=== PATIENT | male | born 1990 | race African-American/Black ===

== ENCOUNTER 2017-09-11 15:58 | Emergency (ER) | payer MEDICAID, OTHER ==
[2017-09-17 00:08] LABS: HSV TYPE I IgM AB <1:10 titer (<1:10); HSV TYPE II IgG SPECIFIC <0.91 index (0.00-0.90); HSV TYPE II IgM ABY <1:10 titer (<1:10)
== END 2017-09-11 17:34 | disposition home or self-care (01) ==
LOC: M ED 15:58
DX: Z20.2 Contact with and (suspected) exposure to infections with a predominantly sexual mode of transmission (principal); Z88.0 Allergy status to penicillin; Z91.030 Bee allergy status
CPT/HCPCS: 86695

== ENCOUNTER 2017-09-17 12:34 | Emergency (ER) | payer MEDICAID, SELFPAY, OTHER | END 2017-09-17 14:51 | disposition left against medical advice (07) | LOC: M ED 12:34 | DX: Z53.21 Procedure and treatment not carried out due to patient leaving prior to being seen by health care provider (principal) ==

== ENCOUNTER 2017-09-17 18:00 | Emergency (ER) | payer MEDICAID | END 2017-09-17 21:00 | disposition left against medical advice (07) | LOC: M ED 18:00 | DX: Z53.21 Procedure and treatment not carried out due to patient leaving prior to being seen by health care provider (principal) ==

== ENCOUNTER 2018-02-24 15:20 | Emergency (ER) | payer OTHER, MEDICAID ==
[2018-02-24 16:26] LABS: INFLUENZA A AMPLIFICATION NEGATIVE (NEGATIVE); INFLUENZA B AMPLIFICATION NEGATIVE (NEGATIVE)
[2018-02-24] MEDS: IBUPROFEN 600 MG TAB PO (17:41)
== END 2018-02-24 17:45 | disposition home or self-care (01) ==
LOC: M ED 15:20
DX: J06.9 Acute upper respiratory infection, unspecified (principal); R11.2 Nausea with vomiting, unspecified; R19.7 Diarrhea, unspecified; Z72.0 Tobacco use; Z88.0 Allergy status to penicillin; Z91.030 Bee allergy status
CPT/HCPCS: 87502

== ENCOUNTER 2018-03-17 15:55 | Inpatient (IN) | payer OTHER ==
[2018-03-17] MEDS: NS 1,000 ML IV ×3 (16:55→20:31)
[2018-03-17 17:09] LABS: ALBUMIN 4.5 GM/DL (3.2-5.2); ALBUMIN/GLOBULIN RATIO 1.13 (1.00-1.93); ALKALINE PHOSPHATASE 63 U/L (45-117); ALT/SGPT 86 U/L (12-78); ANION GAP 14 MEQ/L (8-16); AST/SGOT 78 U/L (7-37); BILIRUBIN,DIRECT 0.2 MG/DL (0.0-0.2); BILIRUBIN,TOTAL 0.5 MG/DL (0.2-1.0); BLOOD UREA NITROGEN 21 MG/DL (7-18); CALCIUM LEVEL 9.3 MG/DL (8.5-10.1); CARBON DIOXIDE LEVEL 23 MEQ/L (21-32); CHLORIDE LEVEL 95 MEQ/L (98-107); CREATININE FOR GFR 1.21 MG/DL (0.70-1.30); GLOMERULAR FILTRATION RATE > 60.0 (>60); GLUCOSE, FASTING 101 MG/DL (70-100); KETONE, URINE AUTO RFX TRACE mg/dL (NEGATIVE); NITRITE, URINE AUTO RFX NEGATIVE (NEGATIVE); POTASSIUM SERUM 3.4 MEQ/L (3.5-5.1); RBC, URINE AUTO RFX 0 /HPF (0-3); SODIUM LEVEL 132 MEQ/L (136-145); SPECIFIC GRAVITY UR AUTO RFX 1.005 (1.002-1.035); SQUAM EPITHELIAL CELL UR AURFX 0 /HPF (0-6); TOTAL PROTEIN 8.5 GM/DL (6.4-8.2); WBC, URINE AUTO RFX 4 /HPF (0-3)
[2018-03-17 17:16] LABS: BASO % 0.3 % (0.0-1.0); EOS # 0.1 10^3/uL (0.0-0.50); EOS % 0.5 % (0.0-3.0); HEMOGLOBIN 13.2 g/dl (13.5-17.5); IMMATURE GRANULOCYTE % 0.5 % (0-3.0); LYMPH # 3.6 10^3/uL (1.5-6.5); LYMPH % 34.5 % (24.0-44.0); MEAN CORPUSCULAR HEMOGLOBIN 22.2 pg (27.0-33.0); MEAN CORPUSCULAR VOLUME 67.3 fl (80.0-96.0); MONO # 0.7 10^3/uL (0.0-0.8); MONO % 6.3 % (0.0-5.0); NEUTROPHILS % 57.9 % (36.0-66.0); RED BLOOD COUNT 5.94 10^6/uL (4.30-6.10); RED CELL DISTRIBUTION WIDTH 17.1 % (11.5-14.5); WHITE BLOOD COUNT 10.4 10^3/uL (4.0-10.0)
[2018-03-17 17:17] LABS: INR 1.01; PARTIAL THROMBOPLASTIN TIME 30.7 SECONDS (25.4-37.6); PROTHROMBIN TIME 13.5 SECONDS (12.1-14.4)
[2018-03-17 17:21] LABS: AMPHETAMINES LEVEL URINE NEGATIVE (NEGATIVE); BARBITURATES URINE NEGATIVE (NEGATIVE); BENZODIAZEPINES URINE NEGATIVE (NEGATIVE); CANNABINOIDS URINE POSITIVE (NEGATIVE); COCAINE METABOLITE URINE NEGATIVE (NEGATIVE); METHADONE URINE NEGATIVE (NEGATIVE); OPIATES URINE NEGATIVE (NEGATIVE); PHENCYCLIDINE URINE NEGATIVE (NEGATIVE)
[2018-03-17 17:22] LABS: C REACTIVE PROTEIN QUANTITATIV < 0.30 MG/DL (0.00-0.30); CPK CREATINE PHOSPHOKINASE 1294 U/L (39-308); FREE T4 1.64 NG/DL (0.76-1.46); LIPASE 54 U/L (73-393); MB/CK RELATIVE INDEX 0.77 (< OR =4); NT-PRO BNP 17 PG/ML (<125); THYROID STIMULATING HORMONE 0.534 uIU/ML (0.358-3.740); TROPONIN I < 0.02 NG/ML (< 0.10)
[2018-03-17 17:54] LABS: POSITIVE MORPH POS FLAG
[2018-03-17 18:22] LABS: ERYTHROCYTE SEDIMENTATION RATE 4 mm/hr (0-15)
[2018-03-17 19:12] LABS: LEUKOCYTE ESTERASE UR AUTO RFX TRACE (NEGATIVE)
[2018-03-17 19:30] LABS: D-DIMER QUANT < 270.0 ng/ml (<500)
[2018-03-17 19:55] LABS: MYOGLOBIN SCREEN, URINE NEGATIVE (NEGATIVE)
[2018-03-17 20:23] LABS: PLTBLUE- EDTA FREE CALC 250 K/mm3 (172-450)
[2018-03-17 20:24] LABS: PLTBLUE- EDTA FREE MACHINE 227 10^3/uL (172-450)
[2018-03-17] MEDS ORDERED: ONDANSETRON 4MG/2ML VIAL (J2405) IV (20:45)
[2018-03-17] MEDS ORDERED: ACETAMINOPHEN TAB 650MG DOSE (2X325MG) PO (20:45)
[2018-03-17] MEDS: POTASSIUM CHLORIDE 10 MEQ SR TABLET PO (21:04)
[2018-03-17 22:10] LABS: CPK CREATINE PHOSPHOKINASE 1163 U/L (39-308); MB/CK RELATIVE INDEX 0.76 (< OR =4); TROPONIN I < 0.02 NG/ML (< 0.10)
[2018-03-18] MEDS: NS 1,000 ML IV (03:42)
[2018-03-18 05:31] LABS: HEMATOCRIT 34.8 % (42.0-52.0); MEAN CORPUSCULAR HEMOGLOBIN 22.7 pg (27.0-33.0); MEAN CORPUSCULAR HGB CONC 32.2 g/dl (32.0-36.5); MEAN CORPUSCULAR VOLUME 70.6 fl (80.0-96.0); PLATELET COUNT, AUTOMATED 257 10^3/uL (150-450); RED BLOOD COUNT 4.93 10^6/uL (4.30-6.10); WHITE BLOOD COUNT 8.1 10^3/uL (4.0-10.0)
[2018-03-18 05:37] LABS: HEMOGLOBIN 11.2 g/dl (13.5-17.5)
[2018-03-18 05:51] LABS: MAGNESIUM LEVEL 1.9 MG/DL (1.8-2.4)
[2018-03-18 05:56] LABS: ANION GAP 4 MEQ/L (8-16); BLOOD UREA NITROGEN 12 MG/DL (7-18); CALCIUM LEVEL 7.9 MG/DL (8.5-10.1); CARBON DIOXIDE LEVEL 28 MEQ/L (21-32); CHLORIDE LEVEL 111 MEQ/L (98-107); GLOMERULAR FILTRATION RATE > 60.0 (>60); GLUCOSE, FASTING 100 MG/DL (70-100); SODIUM LEVEL 143 MEQ/L (136-145)
[2018-03-18 06:20] LABS: CPK CREATINE PHOSPHOKINASE 1050 U/L (39-308); MB/CK RELATIVE INDEX 0.67 (< OR =4); TROPONIN I < 0.02 NG/ML (< 0.10)
[2018-03-18] MEDS: NS 0.45% 1,000 ML IV ×2 (06:36→16:44)
[2018-03-18] MEDS: BACITRACIN OINT 30GM TOP (09:46)
[2018-03-18] MEDS ORDERED: NICOTINE 14 MG/24 HR TRANSDERMAL TD (12:00)
[2018-03-18 14:27] LABS: CK-MB VALUE MASS 7.7 NG/ML (<3.6); CPK CREATINE PHOSPHOKINASE 1276 U/L (39-308); TROPONIN I < 0.02 NG/ML (< 0.10)
[2018-03-19] MEDS: NS 0.45% 1,000 ML IV (02:45)
[2018-03-19] MEDS: BACITRACIN OINT 30GM TOP (09:00)
[2018-03-19 09:43] LABS: HEMATOCRIT 42.5 % (42.0-52.0); HEMOGLOBIN 13.4 g/dl (13.5-17.5); MEAN CORPUSCULAR HEMOGLOBIN 22.2 pg (27.0-33.0); MEAN CORPUSCULAR HGB CONC 31.5 g/dl (32.0-36.5); MEAN CORPUSCULAR VOLUME 70.4 fl (80.0-96.0); PLATELET COUNT, AUTOMATED 281 10^3/uL (150-450); RED BLOOD COUNT 6.04 10^6/uL (4.30-6.10); RED CELL DISTRIBUTION WIDTH 17.5 % (11.5-14.5); WHITE BLOOD COUNT 4.4 10^3/uL (4.0-10.0)
[2018-03-19 10:03] LABS: ANION GAP 3 MEQ/L (8-16); BLOOD UREA NITROGEN 6 MG/DL (7-18); CARBON DIOXIDE LEVEL 32 MEQ/L (21-32); CHLORIDE LEVEL 104 MEQ/L (98-107); CPK CREATINE PHOSPHOKINASE 896 U/L (39-308); CREATININE FOR GFR 0.78 MG/DL (0.70-1.30); GLOMERULAR FILTRATION RATE > 60.0 (>60); GLUCOSE, FASTING 101 MG/DL (70-100); MAGNESIUM LEVEL 1.7 MG/DL (1.8-2.4); POTASSIUM SERUM 4.2 MEQ/L (3.5-5.1); SODIUM LEVEL 139 MEQ/L (136-145)
== END 2018-03-19 10:54 | disposition home or self-care (01) | DRG 351 ==
LOC: M MSPAV 03-18 03:30 → M ED 15:55 → M ED INP 20:31
DX: T79.6XXA Traumatic ischemia of muscle, initial encounter (principal); E86.0 Dehydration; W17.89XA Other fall from one level to another, initial encounter; Y93.51 Activity, roller skating (inline) and skateboarding; Y92.89 Other specified places as the place of occurrence of the external cause; F17.210 Nicotine dependence, cigarettes, uncomplicated; E87.6 Hypokalemia; Z88.0 Allergy status to penicillin; Z91.030 Bee allergy status

== ENCOUNTER → 2018-06-06 | Outpatient (REF) | payer OTHER ==
[~2018-06-06] MED LIST: ACET-683 PO; IBUP-1022 PO; MAGICMW SS
[2018-06-06 12:16] LABS: HEMATOCRIT 39.2 % (42.0-52.0); HEMOGLOBIN 12.7 g/dl (13.5-17.5); MEAN CORPUSCULAR HEMOGLOBIN 22.3 pg (27.0-33.0); MEAN CORPUSCULAR HGB CONC 32.4 g/dl (32.0-36.5); MEAN CORPUSCULAR VOLUME 68.9 fl (80.0-96.0); PLATELET COUNT, AUTOMATED 310 10^3/uL (150-450); RED BLOOD COUNT 5.69 10^6/uL (4.30-6.10); WHITE BLOOD COUNT 7.2 10^3/uL (4.0-10.0)
[2018-06-06 13:00] LABS: ALBUMIN 4.4 GM/DL (3.2-5.2); ALT/SGPT 73 U/L (12-78); BILIRUBIN,TOTAL 0.3 MG/DL (0.2-1.0); BLOOD UREA NITROGEN 21 MG/DL (7-18); CALCIUM LEVEL 9.5 MG/DL (8.5-10.1); CARBON DIOXIDE LEVEL 29 MEQ/L (21-32); CHLORIDE LEVEL 101 MEQ/L (98-107); CPK CREATINE PHOSPHOKINASE 899 U/L (39-308); CREATININE FOR GFR 0.83 MG/DL (0.70-1.30); FREE T4 1.23 NG/DL (0.76-1.46); GLOMERULAR FILTRATION RATE > 60.0 (>60); GLUCOSE, FASTING 97 MG/DL (70-100); MB/CK RELATIVE INDEX 0.38 (< OR =4); POTASSIUM SERUM 4.4 MEQ/L (3.5-5.1); SODIUM LEVEL 136 MEQ/L (136-145); TOTAL PROTEIN 7.7 GM/DL (6.4-8.2)
== END ==
LOC: M SFHCPLAZ 08:16
PROVIDERS: ATTEND Physician Assistant
DX: F31.9 Bipolar disorder, unspecified (principal); Z87.39 Personal history of other diseases of the musculoskeletal system and connective tissue

== ENCOUNTER → 2018-06-19 | Outpatient (REF) | payer OTHER ==
[~2018-06-19] MED LIST changes: +FLON1SPR NARES; +ZYRT10CA PO
[2018-06-19 16:24] LABS: INR 0.92; PROTHROMBIN TIME 12.4 SECONDS (12.1-14.4)
[2018-06-19 16:25] LABS: PARTIAL THROMBOPLASTIN TIME 30.1 SECONDS (25.4-37.6)
[2018-06-19 16:35] LABS: CPK CREATINE PHOSPHOKINASE 372 U/L (39-308); FERRITIN 86 NG/ML (26-388); IRON (FE) 89 UG/DL (65-175); PERCENT SATURATION 21.8 % (19.7-50.0); TOTAL IRON BINDING CAPACITY 408 UG/DL (250-450)
[2018-06-20 10:34] LABS: HEPATITIS B SURFACE ANTIBODY POSITIVE (POSITIVE)
[2018-06-20 10:36] LABS: FOLATE 19.8 NG/ML (>5.4)
[2018-06-20 10:44] LABS: HEPATITIS B SURFACE ANTIGEN NEGATIVE (NEGATIVE)
[2018-06-20 11:13] LABS: HEPATITIS B CORE ANTIBODY IGM NEGATIVE (NEGATIVE)
[2018-06-20 11:40] LABS: HEPATITIS C VIRUS ABY INDEX > 11.0 INDEX (<0.8)
[2018-06-23 00:06] LABS: ALPHA 1 ANTITRYPSIN 142 mg/dL (90-200); ANA (HEP2) Negative (.); ANTI-MITOCHONDRIAL ANTIBODY 4.4 Units (0.0-20.0)
[2018-06-23 07:36] LABS: VITAMIN B12 LEVEL 761 PG/ML (232-1245)
== END ==
LOC: M SFHCPLAZ 14:28
PROVIDERS: ATTEND Physician Assistant
DX: R74.8 Abnormal levels of other serum enzymes (principal); D50.9 Iron deficiency anemia, unspecified

== ENCOUNTER 2018-07-01 18:38 | Emergency (ER) | payer OTHER ==
[~2018-07-01] VITALS: Ht 170.2 cm; Wt 63.6 kg
[~2018-07-01 18:38] MED LIST changes: -FLON1SPR NARES; -ZYRT10CA PO
[2018-07-01 18:39] VITALS: BP 134/81
[2018-07-01] MEDS ORDERED: ZYRT10CA PO (21:36)
[2018-07-01] MEDS ORDERED: FLON1SPR NARES (21:36)
== END 2018-07-01 22:21 | disposition left against medical advice (07) ==
LOC: M ED 18:38
DX: J30.2 Other seasonal allergic rhinitis (principal); S61.200A Unspecified open wound of right index finger without damage to nail, initial encounter; W25.XXXA Contact with sharp glass, initial encounter; Y92.89 Other specified places as the place of occurrence of the external cause; Z88.0 Allergy status to penicillin; Z91.030 Bee allergy status; F17.200 Nicotine dependence, unspecified, uncomplicated

== ENCOUNTER → 2018-07-01 | Outpatient (CLI) | payer OTHER ==
--- NOTE | 2018-07-02 06:10 | REP ---
Clinical: Elevated liver function tests. Technique: Real time moore scale ultrasound examination using curved array transducer. Findings: Liver and pancreas are normal in contour, size, echogenicity without focal hepatic or pancreatic lesions identified. Gallbladder demonstrates small amount of layering sludge/debris without gallstones, wall thickening, or pericholecystic fluid. No biliary ductal dilatation is appreciated and the common bile duct measures 3.1 mm diameter. Right kidney is normal in reniform shape without hydronephrosis and measures 10.4 x 5.7 x 3.5 cm. No ascites. Impression: Normal liver and right upper quadrant ultrasound. Electronically Signed by Mino Carrasquillo MD 07/02/2018 06:02 A
== END ==
LOC: M RAD 09:27
PROVIDERS: ATTEND Physician Assistant
DX: R74.8 Abnormal levels of other serum enzymes (principal)

== ENCOUNTER 2018-08-22 09:27 | Emergency (ER) | payer OTHER ==
[~2018-08-22] VITALS: Ht 170.2 cm; Wt 62.6 kg
[~2018-08-22 09:27] MED LIST changes: +FLON1SPR NARES; +ZYRT10CA PO
[2018-08-22] MEDS ORDERED: LIDOCAINE 2% MDV 20 ML VIAL SC ONE (10:30)
[2018-08-22 11:42] VITALS: BP 127/80
== END 2018-08-22 11:43 | disposition home or self-care (01) ==
LOC: M ED 09:27
DX: S01.511A Laceration without foreign body of lip, initial encounter (principal); K08.89 Other specified disorders of teeth and supporting structures; W19.XXXA Unspecified fall, initial encounter; Y92.410 Unspecified street and highway as the place of occurrence of the external cause; Y93.51 Activity, roller skating (inline) and skateboarding; Y99.9 Unspecified external cause status; F41.9 Anxiety disorder, unspecified; F90.9 Attention-deficit hyperactivity disorder, unspecified type; Z77.098 Contact with and (suspected) exposure to other hazardous, chiefly nonmedicinal, chemicals; F12.10 Cannabis abuse, uncomplicated; Z88.0 Allergy status to penicillin; Z91.030 Bee allergy status

== ENCOUNTER 2018-09-15 21:57 | Emergency (ER) | payer OTHER ==
[~2018-09-15] VITALS: Ht 170.2 cm; Wt 59.1 kg
[2018-09-15 23:34] LABS: BASO % 0.5 % (0.0-1.0); EOS % 0.7 % (0.0-3.0); HEMATOCRIT 40.7 % (42.0-52.0); HEMOGLOBIN 12.7 g/dl (13.5-17.5); LYMPH # 1.4 10^3/uL (1.5-4.5); LYMPH % 31.2 % (24.0-44.0); MEAN CORPUSCULAR HEMOGLOBIN 21.6 pg (27.0-33.0); MEAN CORPUSCULAR HGB CONC 31.2 g/dl (32.0-36.5); MEAN CORPUSCULAR VOLUME 69.2 fl (80.0-96.0); MONO # 0.6 10^3/uL (0.0-0.8); MONO % 13.6 % (0.0-5.0); NEUTROPHILS # 2.3 10^3/uL (1.8-7.7); NEUTROPHILS % 53.8 % (36.0-66.0); PLATELET COUNT, AUTOMATED 359 10^3/uL (150-450); RED BLOOD COUNT 5.88 10^6/uL (4.30-6.10); WHITE BLOOD COUNT 4.3 10^3/uL (4.0-10.0)
[2018-09-16] MEDS ORDERED: ELIM5CRE2 TOP (00:06)
[2018-09-16] MEDS ORDERED: KEFL500C17 PO (00:06)
[2018-09-16] MEDS ORDERED: KETOROLAC TROMETHAMINE 10 MG TAB PO ONE (00:15)
[2018-09-16 00:17] VITALS: BP 133/51
== END 2018-09-16 00:18 | disposition home or self-care (01) ==
LOC: M ED 21:57
DX: B86 Scabies (principal); L03.114 Cellulitis of left upper limb; B00.9 Herpesviral infection, unspecified; F12.10 Cannabis abuse, uncomplicated; F16.10 Hallucinogen abuse, uncomplicated; F31.9 Bipolar disorder, unspecified; J45.909 Unspecified asthma, uncomplicated; B19.20 Unspecified viral hepatitis C without hepatic coma; Z88.0 Allergy status to penicillin; F17.210 Nicotine dependence, cigarettes, uncomplicated; Z91.030 Bee allergy status

== ENCOUNTER 2018-09-23 21:09 | Emergency (ER) | payer OTHER ==
[~2018-09-23] VITALS: Ht 172.7 cm; Wt 63.6 kg
[~2018-09-23 21:09] MED LIST changes: +ELIM5CRE2 TOP; +KEFL500C17 PO
[2018-09-23 21:11] VITALS: BP 137/89
[2018-09-23] MEDS ORDERED: KEFL500C17 PO (23:05)
[2018-09-23] MEDS ORDERED: ELIM5CRE2 TOP (23:05)
== END 2018-09-23 23:18 | disposition home or self-care (01) ==
LOC: M ED 21:09
DX: B86 Scabies (principal); L03.114 Cellulitis of left upper limb; F17.210 Nicotine dependence, cigarettes, uncomplicated; Z88.0 Allergy status to penicillin; Z91.030 Bee allergy status; Z79.2 Long term (current) use of antibiotics

== ENCOUNTER → 2019-11-04 | Outpatient (REF) | payer OTHER | LOC: M LAB REF 12:26 | PROVIDERS: ATTEND Surgery | DX: Z11.59 Encounter for screening for other viral diseases (principal) ==